=== PATIENT | male | born 1950 | race Caucasian/White ===

== ENCOUNTER 2018-03-08 06:10 | Inpatient (IN) | payer OTHER ==
[2018-02-22 13:13] VITALS: BMI 25.0
[2018-03-08] MEDS ORDERED: ROPIVICAINE 0.2%/MORPH PF/KETOROLAC - 51ML DISP.SYRINGE IA ONE ×3 (06:28→10:38)
[2018-03-08] MEDS ORDERED: CEFAZOLIN 2 GM/D5W 2 GM/50 ML ML IVPB ONE (06:28)
[2018-03-08] MEDS ORDERED: TRANEXAMIC ACID 1000 MG/10 ML VIAL IVPUSH ONE (06:28)
[2018-03-08] MEDS: CELECOXIB 200 MG CAPSULE PO ONE ×2 (06:45→12:14)
[2018-03-08] MEDS: oxyCODONE HCL 10 MG SUSTAINED ACTING TABLET PO ONE ×2 (06:45→12:14)
[2018-03-08] MEDS: GABAPENTIN 300 MG CAPSULE (FP) PO ONE ×2 (06:45→12:14)
[2018-03-08] MEDS ORDERED: DEXAMETHASONE SOD PHOSPHATE/PF 10 MG/ML SDV ONE ×2 (07:09→07:12)
[2018-03-08] MEDS ORDERED: EPINEPHrine/PF 1 MG/1 ML (1:1,000) AMPULE ONE (07:09)
[2018-03-08] MEDS ORDERED: MIDAZOLAM HCL 2 MG/2 ML SINGLE DOSE VIAL ONE (07:09)
--- NOTE | 2018-03-08 07:19 | HP ---
Admitting History and Physical - Admission Chief Complaint: right hip osteoarthritis x year History of Present Illness: 68 year old male presents in regard to his right hip. Longstanding history of right hip osteoarthritis. Patient complains of pain, limited ROM, difficulty ambulating and difficulty with ADLs. Patient has failed conservative treatment measures including PO medication, activity modification, exercise program and injections. At this point, patient would like to proceed with surgical intervention, Right total hip arthroplasty - MAKOplasty. History Source: Patient - Past Medical History Cardiovascular: Yes: HTN Pulmonary: Yes: Asthma Renal/: Yes: Renal Calculi - Past Surgical History Additional Past Surgical History: See written history & physical. - Smoking History Smoking history: Never smoked Have you smoked in the past 12 months: No - Alcohol/Substance Use Hx Alcohol Use: Yes (OCCASIONALLY) Home Medications - Allergies Allergies/Adverse Reactions: Allergies Allergy/AdvReac Type Severity Reaction Status Date / Time No Known Allergies Allergy Verified 02/22/18 12:54 - Home Medications Home Medications: Ambulatory Orders Albuterol Sulfate [Proair Hfa] 8.5 gm IH QID PRN 02/22/18 Ascorbate Calcium [Vitamin C] 500 mg PO DAILY 02/22/18 Diltiazem Cd [Cardizem Cd -] 300 mg PO DAILY 02/22/18 Fluticasone/Salmeterol [Advair 250-50 Diskus] 1 each IH BID 02/22/18 Meloxicam [Mobic (Nf) -] 15 mg PO DAILY 02/22/18 Multivitamin [Multiple Vitamins] 1 each PO DAILY 02/22/18 Tramadol HCl 50 mg PO Q6H PRN 02/22/18 Turmeric Root Extract [Turmeric] 500 mg PO DAILY 02/22/18 Oxycodone HCl/Acetaminophen [Percocet 5-325 mg Tablet] 1 tab PO Q4H PRN Review of Systems - Review of Systems Musculoskeletal: reports: Decreased ROM (right hip), Joint Pain (right hip) Physical Examination Vital Signs: Vital Signs Temperature 97.8 F 03/08/18 07:03 Pulse Rate 82 03/08/18 07:03 Respiratory Rate 16 03/08/18 07:03 Blood Pressure 144/97 03/08/18 07:03 O2 Sat by Pulse Oximetry (%) Constitutional: Yes: Well Nourished, No Distress Eyes: Yes: Conjunctiva Clear HENT: Yes: Atraumatic, Normocephalic Neck: Yes: Supple Cardiovascular: Yes: Regular Rate and Rhythm Respiratory: Yes: Regular Gastrointestinal: Yes: Soft ...Rectal Exam: Yes: Deferred Musculoskeletal: Yes: Joint Stiffness (right hip) Assessment/Plan 8 year old male presents in regard to his right hip. Longstanding history of right hip osteoarthritis. Patient complains of pain, limited ROM, difficulty ambulating and difficulty with ADLs. Patient has failed conservative treatment measures including PO medication, activity modification, exercise program and injections. At this point, patient would like to proceed with surgical intervention. Pros, cons, risks, benefits & alternatives of a right total hip arthroplasty - MAKOplasty were discussed with the patient at length. Patient confirms his understanding and consents to proceed with a right total hip arthroplasty, MAKOplasty.
[2018-03-08] MEDS ORDERED: VANCOMYCIN 1,000 MG VIAL (RESTRICTED TO ID ONLY) ONE (07:20)
[2018-03-08] MEDS ORDERED: ceFAZolin SODIUM 1 GM VIAL ONE (07:20)
[2018-03-08] MEDS: PANTOPRAZOLE 40 MG TABLET (FP) PO ONE ×2 (07:31→12:15)
[2018-03-08] MEDS ORDERED: TRANEXAMIC ACID 1000 MG/10 ML VIAL IVPB ONE (10:38)
[2018-03-08] MEDS ORDERED: ALBUTEROL SO4 18 GM HFA INHALER IH PRN (10:40)
[2018-03-08] MEDS ORDERED: ONDANSETRON 4 MG/2 ML VIAL IVPUSH PRN (10:42)
[2018-03-08] MEDS ORDERED: MAG HYDROX/AL HYDROX/SIMETH 30 ML UNIT-DOSE CUP PO PRN (10:42)
[2018-03-08] MEDS ORDERED: MAGNESIUM HYDROX 2400MG/30ML ORAL SUSPENSION 30 ML CUP PO PRN (10:42)
[2018-03-08] MEDS ORDERED: VANCOMYCIN 1,000 MG VIAL (RESTRICTED TO ID ONLY) IVPB ONE (10:42)
[2018-03-08] MEDS ORDERED: LACTATED RINGERS SOLUTION 1,000 ML IV SCH (10:45)
[2018-03-08] MEDS ORDERED: ACETAMINOPHEN 1000 MG/100 ML VIAL (NON FORMULARY) IVPB ONE (10:46)
[2018-03-08] MEDS ORDERED: traMADol HCL 50 MG TABLET PO SCH (11:00)
[2018-03-08] MEDS ORDERED: KETOROLAC TROMETHAMINE 30 MG/1 ML VIAL IVPUSH SCH (11:00)
[2018-03-08] MEDS ORDERED: KETOROLAC TROMETHAMINE 30 MG/1 ML VIAL ONE (11:57)
[2018-03-08] MEDS ORDERED: ONDANSETRON 4 MG/2 ML VIAL ONE (11:57)
[2018-03-08] MEDS ORDERED: traMADol HCL 50 MG TABLET ONE (11:58)
[2018-03-08] MEDS ORDERED: ACETAMINOPHEN INJECTION 100 ML IVPB ONE (11:59)
[2018-03-08] MEDS: KETOROLAC TROMETHAMINE 30 MG/1 ML VIAL IVPUSH SCH ×3 (11:59→23:51)
[2018-03-08] MEDS: traMADol HCL 50 MG TABLET PO SCH ×4 (12:10→23:50)
[2018-03-08] MEDS: BUDESONIDE/FORMETEROL FUMARATE 80/4.5 mcg INHALER IH SCH ×2 (12:19→21:22)
[2018-03-08] MEDS ORDERED: oxyCODONE HCL 5 MG TABLET PO PRN (13:36)
[2018-03-08] MEDS: ACETAMINOPHEN 325 MG TABLET (FP) PO SCH ×2 (14:22→20:15)
--- NOTE | 2018-03-08 14:47 | OP ---
Operative Note - Note: Operative Date: 03/08/18 Pre-Operative Diagnosis: Right hip OA Operation: Right CRYS ANYI Post-Operative Diagnosis: Same as Pre-op Surgeon: Donnie Gillespie Wrapper Sorter: Analisa Hutchinson Anesthesia: Spinal Estimated Blood Loss (mls): 200 Operative Report Dictated: Yes
[2018-03-08] MEDS: oxyCODONE HCL 5 MG TABLET PO PRN ×2 (17:09→20:14)
[2018-03-08] MEDS: CEFAZOLIN 2 GM/D5W 2 GM/50 ML ML IVPB SCH (17:13)
--- NOTE | 2018-03-08 18:25 | SPEC ---
DATE OF OPERATION: 03/08/2018 PREOPERATIVE DIAGNOSIS: Right hip osteoarthritis. POSTOPERATIVE DIAGNOSIS: Right hip osteoarthritis. PROCEDURE: Right total hip replacement with MAKOplasty robotic navigation. ATTENDING: Fe Luevano MD TEMPLATE FITTER: ROBERT Poole ANESTHESIA: Spinal plus sedation. ESTIMATED BLOOD LOSS: 200 mL COMPLICATIONS: None. DISPOSITION: The patient was transferred to the PACU in stable condition. IMPLANTS USED: [place] Triathlon size 6 femoral component, Kenneth Tritanium 58-mm acetabular component with 25, 20, and 20-mm acetabular screws, MDM head ball and liner with inner ceramic plus 4 mm offset head. INDICATIONS: This is a 68-year-old male who presented to the office complaining of severe right hip pain. He was seen and examined by Dr. Luevano and diagnosed with severe right hip osteoarthritis. The patient was initially treated nonoperatively with injections, medications, and physical therapy but continued to have severe pain and ambulatory dysfunction. He was, therefore, indicated for a right total hip replacement with MAKOplasty robotic navigation. The risks, benefits, and alternatives of the procedure were explained to the patient in great detail, and he elected to proceed with surgery. On the day of surgery, the patient was taken to the operating room and placed on the OR table. Spinal anesthesia was administered by the anesthesiologist. The patient was then positioned in the lateral decubitus position on the table and all bony prominences were padded. An axillary roll was placed. The operative hip was then prepped and draped in the usual sterile fashion and intravenous antibiotics were given for infection prophylaxis. A surgical time-out was then performed with the team, and the patients identity, procedure, side, availability of implants, and the administration of antibiotics were confirmed. An approximately 15-cm longitudinal incision was made through the skin centered on the greater trochanter of the hip. This dissection was carried down through the subcutaneous tissues to the deep fascia. This fascia was then incised and a Cobra was placed around the inferior femoral neck. Electrocautery was used to reflect the anterior 40% of the gluteus medius and minimus starting at the musculotendinous junction and leaving a cuff for closure. This was reflected to reveal the capsule of the hip joint. An anterior capsulectomy was performed and the femoral head and neck were visualized. Grade 4 changes were noted diffusely throughout the joint. At this point, three small stab incisions were made superior to the main incision along the iliac crest. Three self-drilling Steinmann pins were then placed and the [employer] pelvic array was attached. Reference points on the limb were then entered into the robotic device and the limb length deficiency, offset, and femoral neck resection level were then calculated by the software. The hip was then dislocated with traction and external rotation. An oscillating saw was used to make the femoral neck cut at the level previously templated, and the femoral head was removed. Attention was then turned to the acetabulum. Retractors were then placed around the acetabulum and the labrum was removed. An acetabular checkpoint pin and the [employer] software were used to register the contours of the acetabulum. The acetabulum was then reamed in a single stage to the preoperatively templated size using the [employer] robotic arm. The appropriately sized cup was then impacted and had solid fixation as well as the preset inclination and version of 40 and 20 degrees, respectively. A polyethylene liner was then placed in the cup. Attention was then turned back to the femur, which was externally rotated for improved visualization. A femoral neck elevator was used to present the femoral neck cut, a box osteotome was used to enter the femoral canal, and a canal finder was used to go down the femoral shaft. The Rah broaches were used sequentially until the optimal scratch fit was achieved. This correlated with the preoperatively templated size. From here, several different offset head and neck configurations were tested until excellent stability and length were obtained. These measurements were quantified using the [employer] software. All trial components were then removed, the femur was copiously irrigated, and the final components were placed. Leg length and stability were checked again and found to be excellent. Irrigation was performed again. Wound closure was started by repairing the abductor muscles with a no. 2 FiberWire stitch in a Krackow configuration passed through bone tunnels in the greater trochanter and tied over a bony bridge. This repair was then reinforced with a 0 V-Loc 180 barbed suture. Next, no. 1 Polysorb and 0 V-Loc 180 were used to close the fascia. The deep subcutaneous tissue was closed with no. 1 Polysorb sutures, and 2-0 Polysorb was used for the superficial subcutaneous tissue. The skin was closed using both 3-0 V-Loc 90 suture in a running subcuticular fashion and SwiftSet skin adhesive. The Rah array and pins were removed from the iliac crest and the stab incision sites were irrigated and closed with 4-0 Polysorb sutures and SwiftSet skin adhesive. Once this was completed, a sterile dressing was applied. The patient was then awakened and taken to the PACU in stable condition. ADDENDUM: After final implants were placed, a 3-minute dilute Betadine lavage was performed. Following this, the wound was thoroughly irrigated with normal saline, and wound closure was begun. FE LUEVANO M.D. [id number]
[2018-03-08] MEDS ORDERED: DEXAMETHASONE SOD PHOSPHATE 10 MG/1 ML VIAL IVPB ONE (20:00)
[2018-03-08] MEDS: CELECOXIB 200 MG CAPSULE PO SCH (21:21)
[2018-03-08] MEDS: oxyCODONE HCL 10 MG SUSTAINED ACTING TABLET PO SCH (21:21)
[2018-03-08] MEDS: SENNOSIDES/DOCUSATE COMBO (SENNA PLUS) TABLET (UD) PO SCH (21:22)
[2018-03-08] MEDS: GABAPENTIN 300 MG CAPSULE (FP) PO SCH (21:22)
[2018-03-08] MEDS: ASCORBIC ACID 500 MG TABLET (FP) PO SCH (21:22)
[2018-03-09] MEDS: ACETAMINOPHEN 325 MG TABLET (FP) PO SCH ×4 (01:07→20:27)
[2018-03-09] MEDS: oxyCODONE HCL 5 MG TABLET PO PRN ×4 (01:07→19:30)
[2018-03-09] MEDS: CEFAZOLIN 2 GM/D5W 2 GM/50 ML ML IVPB SCH (02:30)
[2018-03-09] MEDS: KETOROLAC TROMETHAMINE 30 MG/1 ML VIAL IVPUSH SCH (06:30)
[2018-03-09] MEDS: traMADol HCL 50 MG TABLET PO SCH ×3 (06:30→19:29)
[2018-03-09] MEDS: ASPIRIN 325 MG TABLET PO SCH (08:02)
[2018-03-09 09:09] LABS: HEMATOCRIT 38.1 % (35.4-49); HEMOGLOBIN 13.1 GM/dl (11.7-16.9); MCH 30.9 pg (25.7-33.7); MCHC 34.2 g/dl (32.0-35.9); MEAN CELL VOLUME 90.3 fl (80-96); MEAN PLT VOLUME 9.4 fl (7.5-11.1); PLATELET COUNT 184 K/MM3 (134-434); RBC 4.23 M/mm3 (4.00-5.60); RDW 12.2 % (11.9-15.9); WHITE BLOOD COUNT 13.9 K/mm3 (4.0-10.8)
[2018-03-09] MEDS: oxyCODONE HCL 10 MG SUSTAINED ACTING TABLET PO SCH ×2 (09:10→21:25)
[2018-03-09 09:29] LABS: ANION GAP 6 (8-16); BLOOD UREA NITROGEN 19 mg/dl (7-18); CALCIUM 8.3 mg/dl (8.4-10.2); CHLORIDE 100 mmol/L (98-107); CO2 25 mmol/L (22-28); CREATININE 0.8 mg/dl (0.6-1.3); GLUCOSE,RANDOM 201 mg/dl (74-106); POTASSIUM 4.5 mmol/L (3.5-5.1); SODIUM 131 mmol/L (136-145)
--- NOTE | 2018-03-09 09:43 | PN ---
Progress Note (short form) - Note Progress Note: 68M POD1 s/p R THR under spinal anesthetic with peripheral nerve block for post operative pain relief. Pt states that pain is well controlled and reports no anesthetic complications. AVSS. Motor and sensory function intact in bilateral lower extremities. Continue current regimen.
[2018-03-09] MEDS: BUDESONIDE/FORMETEROL FUMARATE 80/4.5 mcg INHALER IH SCH ×2 (10:00→21:25)
[2018-03-09] MEDS: CELECOXIB 200 MG CAPSULE PO SCH ×2 (10:00→21:25)
[2018-03-09] MEDS: SENNOSIDES/DOCUSATE COMBO (SENNA PLUS) TABLET (UD) PO SCH ×2 (10:00→21:25)
[2018-03-09] MEDS: GABAPENTIN 300 MG CAPSULE (FP) PO SCH ×2 (10:00→21:25)
[2018-03-09] MEDS: MULTIVITAMINS (DAILY MVI) TABLET (FP) PO SCH (10:00)
[2018-03-09] MEDS: PANTOPRAZOLE 40 MG TABLET (FP) PO SCH (10:00)
[2018-03-09] MEDS: ASCORBIC ACID 500 MG TABLET (FP) PO SCH ×2 (10:05→21:25)
--- NOTE | 2018-03-09 22:14 | PN ---
Progress Note (short form) - Note Progress Note: Pt seen and examined. Comfortable. Doing well. AVSS Selected Entries 03/09/18 03/09/18 14:08 20:53 Temperature 97.7 F Pulse Rate 94 H Respiratory 18 Rate Blood Pressure 149/73 O2 Sat by Pulse 96 Oximetry (%) Laboratory Tests 03/09/18 03/09/18 07:40 07:40 WBC 13.9 H Hgb 13.1 Hct 38.1 Plt Count 184 Sodium 131 L Potassium 4.5 Chloride 100 Carbon Dioxide 25 Anion Gap 6 L BUN 19 H Creatinine 0.8 Creat Clearance w eGFR > 60 Random Glucose 201 H Calcium 8.3 L RLE: c/d/i, NVID A/P POD#1 s/p R ANYI 1. PT/OOB 2. D/C in AM after PT
--- NOTE | 2018-03-09 22:28 | DS ---
Physical Examination Vital Signs: Vital Signs Temperature 97.7 F 03/09/18 14:08 Pulse Rate 94 H 03/09/18 14:08 Respiratory Rate 18 03/09/18 20:53 Blood Pressure 149/73 03/09/18 14:08 O2 Sat by Pulse Oximetry (%) 96 03/09/18 20:53 Labs: CBC, BMP 03/09/18 07:40 03/09/18 07:40 Discharge Summary Reason For Visit: SEVERE RIGHT HIP OSTEOARTHRITIS Current Active Problems Osteoarthritis of right hip (Acute) Procedures: Principal: right CRYS ANYI Hospital Course: Admitted for elective surgery. Procedure performed without complications. Pt received postoperative antibiotic prophylaxis and DVT ppx. Ambulated with physical therapy. Stable for discharge home with outpatient followup. Condition: Stable - Instructions Diet, Activity, Other Instructions: Dr Luevano - Hip Replacement Instructions Keep the Aquacel dressing on until removed by Dr. Luevano in 10-14 days - it is antibacterial and waterproof and you can shower with it on. Call the office for a follow-up appointment with Dr. Luevano ON ThursdayMarch [phone] DR LUEVANO WILL BE OUT OF TOWN NEXT WEEK; DRS. APONTE AND LOWELL WILL BE IN THE OFFICE IF THERE ARE ANY ISSUES. Take one Aspirin 325mg daily for 6 weeks to prevent blood clots in your legs. Take one Pantoprazole 40mg daily for 6 weeks to protect against heartburn and ulcers. Take Cephalexin (antibiotic) 3x/day for 10 days to help prevent skin infection. Resume taking Meloxicam daily to reduce swelling and inflammation. Take a multivitamin, stool softener and extra Vitamin C supplement daily. For pain: *Mild pain (1-3/10): Take 1 Tramadol tablet every 4 hours as needed. Moderate pain (4-6/10): Take 1 Tramadol tablet and 1 Percocet tablet every 4 hours as needed. Severe pain (7-10/10): Take 1 Tramadol tablet and 2 Percocet tablets every 4 hours as needed. Activity: You can put as much weight on the operative leg as you want. For the first 6 weeks, all you need to do is walk around the house, go up/down stairs, and sit down/get up. After 6 weeks when everything is healed (and bone has grown into the implant) you will be sent for more intensive outpatient physical therapy. Always use a walker or cane for balance and to prevent falls. Expect to see swelling / bruising from the operative site all the way down to your toes. Wear the compression stocking on the operative side during the day to minimize how much swelling there is in your foot/ankle. Don't wear the stocking at night. You don 't have to wear the stocking on the other side. Disposition: VNS/HOME HEALTH CARE - Home Medications Comprehensive Discharge Medication List: Ambulatory Orders Albuterol Sulfate [Proair Hfa] 8.5 gm IH QID PRN 02/22/18 Ascorbate Calcium [Vitamin C] 500 mg PO DAILY 02/22/18 Diltiazem Cd [Cardizem Cd -] 300 mg PO DAILY 02/22/18 Fluticasone/Salmeterol [Advair 250-50 Diskus] 1 each IH BID 02/22/18 Meloxicam [Mobic (Nf) -] 15 mg PO DAILY 02/22/18 Multivitamin [Multiple Vitamins] 1 each PO DAILY 02/22/18 Turmeric Root Extract [Turmeric] 500 mg PO DAILY 02/22/18 Ascorbic Acid [Vitamin C -] 500 mg PO BID tablet 03/09/18 Aspirin [ASA -] 325 mg PO DAILY@0800 tablet 03/09/18 Cephalexin Monohydrate [Keflex -] 500 mg PO TID #30 capsule 03/09/18 Oxycodone HCl/Acetaminophen [Percocet 5-325 mg Tablet] 1 - 2 tab PO Q4H PRN #60 tablet MDD 8 03/09/18 Pantoprazole Sodium [Protonix -] 40 mg PO DAILY #40 tablet.ec 03/09/18 Sennosides/Docusate Sodium [Pericolace -] 1 tablet PO BID tablet 03/09/18 traMADol HCL [Ultram -] 50 mg PO Q4H #60 tablet MDD 6 03/09/18
[2018-03-10] MEDS: traMADol HCL 50 MG TABLET PO SCH ×3 (00:30→12:00)
[2018-03-10] MEDS: oxyCODONE HCL 5 MG TABLET PO PRN ×3 (00:31→14:30)
[2018-03-10] MEDS: ACETAMINOPHEN 325 MG TABLET (FP) PO SCH ×3 (02:59→13:45)
[2018-03-10 06:37] VITALS: BP 145/83; PULSE 71; TEMP 97.8
[2018-03-10] MEDS: ASPIRIN 325 MG TABLET PO SCH (08:00)
[2018-03-10] MEDS ORDERED: PT OWN MED DRAWER 7, Y5N ONE (09:18)
[2018-03-10 09:26] LABS: HEMATOCRIT 38.2 % (35.4-49); HEMOGLOBIN 12.9 GM/dl (11.7-16.9); MCH 30.3 pg (25.7-33.7); MCHC 33.9 g/dl (32.0-35.9); MEAN CELL VOLUME 89.3 fl (80-96); MEAN PLT VOLUME 9.4 fl (7.5-11.1); PLATELET COUNT 180 K/MM3 (134-434); RBC 4.28 M/mm3 (4.00-5.60); RDW 12.7 % (11.9-15.9); WHITE BLOOD COUNT 17.4 K/mm3 (4.0-10.8)
[2018-03-10] MEDS: MULTIVITAMINS (DAILY MVI) TABLET (FP) PO SCH (10:00)
[2018-03-10] MEDS: PANTOPRAZOLE 40 MG TABLET (FP) PO SCH (10:05)
[2018-03-10] MEDS: GABAPENTIN 300 MG CAPSULE (FP) PO SCH (10:51)
[2018-03-10] MEDS: oxyCODONE HCL 10 MG SUSTAINED ACTING TABLET PO SCH (10:51)
[2018-03-10] MEDS: CELECOXIB 200 MG CAPSULE PO SCH (10:51)
[2018-03-10] MEDS: SENNOSIDES/DOCUSATE COMBO (SENNA PLUS) TABLET (UD) PO SCH (10:52)
[2018-03-10] MEDS: PANTOPRAZOLE 40 MG TABLET (FP) PO ONE (10:52)
[2018-03-10] MEDS: BUDESONIDE/FORMETEROL FUMARATE 80/4.5 mcg INHALER IH SCH (10:52)
[2018-03-10] MEDS: ASCORBIC ACID 500 MG TABLET (FP) PO SCH (10:53)
--- NOTE | 2018-03-10 14:10 | PATH ---
Surgical Pathology Report Patient Name: MONA BANERJEE Med. Rec. #: [id number] /Age/Gender: 1950 (Age: 68) / M Account: [id number] Location: [facility] MED-SURG Taken: 03/08/2018 Received: 03/08/2018 Reported: 03/10/2018 Physicians: Donnie Gillespie M.D. Specimen(s) Received RIGHT FEMORAL HEAD Clinical History Severe right hip osteoarthritis Final Diagnosis FEMORAL HEAD, RIGHT, TOTAL HIP REPLACEMENT: DEGENERATIVE JOINT DISEASE. Electronically Signed Anita Moreno M.D. Gross Description Received in formalin, labeled "right femoral head," is a 5.0 x 5.0 x 4.5 cm. femoral head with a 1.5 cm in length portion of femoral neck attached. The margin of resection is smooth. There is a 4.3 cm in greatest dimension area of eburnation present. The remaining articular surface is castillo-yellow and diffusely granular. The underlying trabecular bone is yellow and hard. A labor [employer] business representative section is submitted in one cassette, following decalcification. /03/09/2018 [facility]03/09/2018
== END 2018-03-10 15:00 | disposition home health service (06) | DRG 470 ==
LOC: FM/S 06:10
PROVIDERS: ADMIT Student in an Organized Health Care Education/Training Program; ATTEND Student in an Organized Health Care Education/Training Program
PROC: 8E0Y0CZ Robotic Assisted Procedure of Lower Extremity, Open Approach (ICD-10-PCS; 2018-03-08)
PROC: 0SR90JZ Replacement of Right Hip Joint with Synthetic Substitute, Open Approach (ICD-10-PCS; principal; 2018-03-08 08:48)
DX: M16.11 Unilateral primary osteoarthritis, right hip (principal); I10 Essential (primary) hypertension; J45.909 Unspecified asthma, uncomplicated; Z87.442 Personal history of urinary calculi
CPT/HCPCS: 36415; 73502-TC-RT; 80048; 85027; 87389; 88305-TC; 88311-TC; 94760; 97116-GP; 97162-GP; J0131; J1100